=== PATIENT | female | born 1995 | race Caucasian/White ===

== ENCOUNTER 2024-11-12 20:30 | Emergency (ER) | payer OTHER ==
[~2024-11-12] VITALS: Ht 154.9 cm; Wt 50.3 kg
[2024-11-13 06:50] VITALS: TEMP 97.9
[2024-11-13] MEDS: LIDOCAINE 2% MDV 20 ML VIAL SC ONE (07:20)
[2024-11-13] MEDS: BOOSTRIX VACCINE (TETANUS/DIPHTH/ACEL. PERTUSSIS) 0.5 ML SYR IM.IMMUN ONE (07:21)
[2024-11-13 07:31] VITALS: BP 128/82; O2SAT 98
== END 2024-11-13 07:44 | disposition home or self-care (01) ==
LOC: M ED 20:30
DX: S01.01XA Laceration without foreign body of scalp, initial encounter (principal); V49.40XA Driver injured in collision with unspecified motor vehicles in traffic accident, initial encounter; Y92.410 Unspecified street and highway as the place of occurrence of the external cause; Y93.89 Activity, other specified; Y99.9 Unspecified external cause status; Z23 Encounter for immunization